=== PATIENT | male | born 1995 | race African-American/Black ===

== ENCOUNTER 2025-05-31 14:18 | Emergency (ER) | payer OTHER ==
[~2025-05-31] VITALS: Ht 175.3 cm; Wt 70.0 kg
[2025-05-31 14:42] VITALS: O2SAT 100
[2025-05-31] MEDS ORDERED: LIDO-53 TP (18:39)
[2025-05-31] MEDS: ACETAMINOPHEN 325MG TABLET PO ONE (18:55)
[2025-05-31] MEDS: LIDOCAINE 5% PATCH TOP SCH (18:55)
[2025-05-31 18:56] VITALS: BP 119/63; PULSE 58; RESP 12; TEMP 36.8; O2SAT 100
== END 2025-05-31 19:00 | disposition home or self-care (01) ==
LOC: ER 14:18
DX: S09.90XA Unspecified injury of head, initial encounter (principal); W19.XXXA Unspecified fall, initial encounter; Y93.89 Activity, other specified; Y92.89 Other specified places as the place of occurrence of the external cause; Y99.8 Other external cause status
CPT/HCPCS: 99284